=== PATIENT | male | born 2000 | race Caucasian/White ===

== ENCOUNTER 2019-04-13 01:02 | Emergency (ER) | payer SELFPAY ==
[~2019-04-13] VITALS: Ht 175.3 cm; Wt 73.8 kg
[2019-04-13 01:05] VITALS: BP 139/65; Ht 175.3 cm; Wt 73.8 kg
--- NOTE | 2019-04-13 01:50 | ERD ---
ER Documentation Chief Complaint Chief Complaint cold symptoms x1 day, "i need a place to stay" HPI This is a 18-year-old male who is a homeless, presented here to emerge department with complaints of cough and colds for more than 3 days. Stated that he does not need a place to stay. Denies headache, head injury, loss of consciousness, dizziness, neck pain, neck stiffness, throat pain, difficulty swallowing, difficulty breathing lying flat, shoulder pain, chest pain, back pain, abdominal pain, nausea, vomiting, constipation, diarrhea, urinary symptoms, loss of bowel and bladder control, trauma, injury, falls, difficulty walking due to pain, numbness or tingling sensation, calf pain, recent travel, recent major surgery in the last 3 weeks, calf pain, recent long travel, recent exposure to any illness, recent antibiotic use in the last 3 months, fever, chills, seizures. Past medical history: Denies. Surgical history: Denies. Social: Denies smoking, use of alcoholic beverages, use of illegal drugs. ROS All systems reviewed and are negative except as per history of present illness. Medications Home Meds Active Scripts Guaifenesin* (Robitussin*) 100 Mg/5 Ml Syrup, 200 MG PO Q4H PRN for COUGH, #4 OZ Prov:PASILABAN,JONATHANAR F 04/13/19 Ibuprofen* (Motrin*) 800 Mg Tab, 800 MG PO Q6H PRN for PAIN AND OR ELEVATED TEMP, #30 TAB Prov:PASILABAN,KLAR F 04/13/19 Azithromycin* (Zithromax*) 250 Mg Tablet, 250 MG PO .ZPACK DIRECTED, #6 TAB TAKE 500 MG (2 TABS) THE FIRST DAY THEN 250 MG (1 TAB) DAYS 2-5 Prov:PASILABAN,KLAR F 04/13/19 PMhx/Soc Medical and Surgical Hx: pt denies Medical Hx, pt denies Surgical Hx Hx Alcohol Use: Yes (ocasional) Hx Substance Use: No Hx Tobacco Use: Yes Smoking Status: Current every day smoker Physical Exam Vitals Vital Signs Date Temp Pulse Resp B/P (MAP) Pulse Ox O2 O2 Flow FiO2 Time Delivery Rate 04/13/19 74 20 98 Room Air 02:06 04/13/19 97.0 82 16 139/65 94 01:05 (89) Physical Exam Head: Atraumatic Eyes: Normal Conjunctiva ENT: Normal External Ears, Nose and Mouth. Bilateral ears: TMs are not erythematous. No bleeding. No discharge. No hearing loss. No mastoid tenderness. Nose: There is no frontal or maxillary sinus tenderness palpation. Throat: Uvula is in midline and nondisplaced. Tonsils are +1 bilaterally without redness and without exudates. Tolerating secretions. Patent airway. Speaks full and clear sentences. No tripoding. Neck: Full range of motion. No meningismus. No nuchal rigidity. No signs of meningeal irritation. Resp: Clear to auscultation bilaterally. No accessory muscle use in breathing. Cardio: Regular rate and rhythm, no murmurs Abd: Soft, non tender, non distended. Normal bowel sounds. Negative Nolasco sign. Skin: No petechiae or rashes. Color appears normal for ethnicity. No skin tenting. No signs of severe dehydration. Back: No midline or flank tenderness Ext: No cyanosis, or edema Neur: Awake and alert. No neurological deficits. Psych: Normal Mood and Affect Results 24 hrs Current Medications Medications Dose Sig/Darline Start Time Status Last (Trade) Ordered Route PRN Stop Time Admin Dose Reason Admin Sodium 1,000 ml @ Q1H ONCE 04/13/19 DC Chloride 1,000 mls/hr IV 02:00 04/13/19 02:59 10 mg ONCE ONCE 04/13/19 DC Dexamethasone IV 02:00 04/13/19 (Decadron) 02:01 Ondansetron 4 mg ONCE STAT 04/13/19 DC HCl (Zofran IV 01:51 04/13/19 Inj) 01:53 Guaifenesin 200 mg ONCE ONCE 04/13/19 DC 04/13/19 (Robitussin PO 02:30 04/13/19 02:26 Liquid Cup) 02:31 Ibuprofen 800 mg ONCE ONCE 04/13/19 DC 04/13/19 (Motrin) PO 02:30 04/13/19 02:26 02:31 Famotidine 40 mg ONCE ONCE 04/13/19 DC 04/13/19 (Pepcid) PO 02:30 04/13/19 02:26 02:31 Procedures/MDM Diagnostic tests: Clinical exam. Treatment: Saline lock. Normal saline IV bolus. Dexamethasone IV. Patient strongly refused IV fluid hydration and treatment here in emergency department. Stated that he just need a cough medicine. Treatment: Motrin. Robitussin. Pepcid p.o. Re-evaluation: Afebrile. Denies chest pain, back pain, abdominal pain. No episode of emesis in the emergency department. No accessory muscle use in breathing. Lungs are clear to auscultation. Differential diagnosis I have low suspicion for sepsis, meningitis, cystitis, peritonsillar abscess, pneumonia, bronchospasm, severe dehydration. Final diagnosis: Bronchitis. Prescription: Azithromycin. Motrin. Robitussin. Follow-up with PCP in the next 24-48 hours. Come back here in the emergency department for any new symptoms or any worsening symptoms. All questions and concerns were answered. Patient and family members verbalized understanding and agreed with plan of care. Hemodynamically stable on discharge. Departure Diagnosis: Primary Impression: Bronchitis Condition: Stable Additional Instructions: Follow-up with PCP in the next 24-48 hours. Come back here in the emergency department for any new symptoms or any worsening symptoms. JACKIE SORENSON Apr 13, 2019 01:50
[2019-04-13] MEDS ORDERED: ONDANSETRON 4 MG INJ IV STA (01:51)
[2019-04-13] MEDS ORDERED: SOD CHLORIDE 0.9% 1,000 ML IV ONE (02:00)
[2019-04-13] MEDS ORDERED: DEXAMETHASONE 10 MG/ML 1 ML INJ IV ONE (02:00)
[2019-04-13 02:06] VITALS: PULSE 74; RESP 20
[2019-04-13] MEDS ORDERED: IBUP800T48 PO (02:22)
[2019-04-13] MEDS ORDERED: AZIT250T PO (02:22)
[2019-04-13] MEDS ORDERED: GUAI-637 PO (02:23)
[2019-04-13] MEDS ORDERED: FAMOTIDINE 20 MG TAB PO ONE (02:30)
[2019-04-13] MEDS ORDERED: IBUPROFEN 800 MG TAB PO ONE (02:30)
[2019-04-13] MEDS ORDERED: GUAIFENESIN 20 MG/ML 5ML CUP PO ONE (02:30)
== END 2019-04-13 02:59 | disposition home or self-care (01) ==
LOC: FTE 01:02
DX: J40 Bronchitis, not specified as acute or chronic (principal); F17.210 Nicotine dependence, cigarettes, uncomplicated
CPT/HCPCS: 99283; J7030